=== PATIENT | male | born 1970 | race Caucasian/White ===

== ENCOUNTER 2023-04-02 20:01 | Outpatient (CLI) | payer BC ==
--- NOTE | 2023-04-10 20:56 | P.PCN ---
Date of Procedure: 04/02/23 Operative Findings: Screening polysomnography report Date of service is 04/02/2023 Pertinent history this is a 53-year-old male patient, a , presented to my office for evaluation of sleep apnea. The patient has excessive fatigue and sleepiness during the day with an [place] score of 16. He reported that his sleep was fragmented. He has history of chronic anxiety and PTSD and has been maintained on BuSpar. He also reported some difficulties with sleep initiation and maintenance. He has a body mass index of 34. He has a Mallampati class I. His comorbid conditions include arthritis and chronic body aches, hypertension, Cabrera's esophagus. No other cardiovascular complications. He does have a positive family history for obstructive sleep apnea. 2 of his brothers have GUMARO and they have been treated with CPAP therapy Pertinent physical findings the patient has a weight of 268 pounds, height is 6 feet and 2 inches and a body mass index is 34.4 Technical description The patient was studied using a standard complex polysomnography protocol that included recording of the 2 EKG, Central, occipital and frontal EEG, right and left outer canthus EOG, submental EMG, right and left anterior tibialis EMG, respiratory airflow by thermocouple and or pressure/flow transducer, respiratory efforts by abdominal and thoracic PVDF belts, oxygen saturation by cable oximetry. Position by observation synchronized the PSG. Equipment used: [employer]. Sleep architecture The total recording duration was 450 minutes. The total sleep time was 337.5 minutes. The wake after sleep onset time was 90 minutes. The overall sleep efficiency was 75%. Delayed sleep onset was 24.5 minutes. The latency to REM sleep was 136.5 minutes. The sleep architecture was characterized by 10.7% stage I, 77.3% stage II, 0% stage III and XII 0.6% REM sleep. The patient had a total arousal index of 8.5 Sleep continuity summary the patient had a total of 48 arousals with an index of 8.5. The respiratory arousal index was 1.1 Cardiac summary The average heart rate was 60 with a minimum heart rate of 56 and a maximum heart rate of 66 Periodic limb movement summary The patient had a total of 33. Rhythm with activity with an index of 5.9. The only 5. Rhythm with activity with arousals with an index of 0.9. Respiratory summary The sleep study showed a total of 79 obstructive events of which 0 obstructive apneas, 0 mixed apneas and 79 will obstructive hypopneas. Based on the AASM rule 1B criteria the patient has an AHI of 12.6 consistent with mild obstructive sleep apnea. Note that his AHI during REM was higher at 25.4. His AHI in the supine body position was also higher at 26. Oxygenation analysis The patient had a baseline pulse ox of 92% while awake. Lowest oxygen saturation was 80% and this occurred during REM sleep. The patient spent approximately 51 minutes of the sleep time at the pulse ox is below 89% Assessment Obstructive sleep apnea, mild at baseline with an AHI of 12.6. Nevertheless, the patient's disease is worse during REM sleep with an AHI of 25 and he was also worsening supine body position with an AHI of 26 Nocturnal oxygen desaturation secondary to obstructive sleep apnea with a minimum pulse ox of 80% Chronic hypersomnia and excessive fatigue with an [place] score of 16 Obesity BMI of 34 History of chronic anxiety and PTSD maintained on BuSpar Hypertension Plan We discussed the findings with the patient. Obviously, the patient is excessively symptomatic. He would benefit from CPAP therapy. Noted his disease is positional and he would benefit from sleeping on his side as the severity of his sleep apnea is significantly worse when sleeping supine. He needs to lose weight and he is encouraged to do so. He will be asked to come into the sleep center to undergo a CPAP titration and following that CPAP therapy is to follow.
== END 2023-04-03 05:15 | disposition home or self-care (01) ==
LOC: 3 N SLEEP 20:01
PROVIDERS: ATTEND Internal Medicine Critical Care Medicine
DX: G47.33 Obstructive sleep apnea (adult) (pediatric) (principal); G47.10 Hypersomnia, unspecified; G47.61 Periodic limb movement disorder; G47.36 Sleep related hypoventilation in conditions classified elsewhere; E66.9 Obesity, unspecified; I10 Essential (primary) hypertension; F41.9 Anxiety disorder, unspecified; F43.10 Post-traumatic stress disorder, unspecified; R53.83 Other fatigue; Z68.34 Body mass index [BMI] 34.0-34.9, adult
CPT/HCPCS: 95810

== ENCOUNTER 2023-05-14 19:29 | Outpatient (CLI) | payer BC ==
--- NOTE | 2023-05-23 22:51 | P.PCN ---
Date of Procedure: 05/14/23 Operative Findings: CPAP titration report Date of services 05/14/2023 Pertinent history 53-year-old female patient diagnosed having obstructive sleep apnea, mild severity with an AHI of 12.6. The patient has excessive fatigue and sleepiness and she carries an [place] score of 16. Her sleep is fragmented and she has chronic anxiety and PTSD maintained on BuSpar. Polysomnography was done on 04/10/2023 and the patient was found to have mild disease worse during REM sleep. Baseline AHI was 12.6 and 25 during REM sleep in 2016 in supine body position. The patient is morbidly obese and has hypertension is COVID conditions Pertinent physical findings The patient's weight is 268 pounds and the patient has a height of 6 feet and 2 inches with a body mass index of 34.4 Technical description The patient was studied using a standard complex polysomnography protocol that included recording of the 2 EKG, Central, occipital and frontal EEG, right and left outer canthus EOG, submental EMG, right and left anterior tibialis EMG, respiratory airflow by thermocouple and or pressure/flow transducer, respiratory efforts by abdominal and thoracic PVDF belts, oxygen saturation by cable oximetry. Position by observation synchronized the PSG. Stepwise CPAP titration was done to eliminate obstructive respiratory events. Equipment used: [employer]. Sleep architecture The total recording duration was 387 minutes. The total sleep time was 173.5 minutes. Overall sleep efficiency was 44.8%. Latency to sleep onset was 36 minutes. The latency to REM sleep was 99.5 minutes. The sleep architecture was characterized by 3.5% stage I, 95.1% stage II, 0% stage III, 5.2% REM sleep. The wake after sleep onset time was 17 8.5 minutes. Total arousal index was 10.4 Respiratory analysis The patient was started on CPAP therapy initially at a pressure of 6 cm of water and the titration was continued to reach a maximum CPAP pressure of 9 cm of water. Noted the pressure was regulated throughout the sleep study and it was noted that at the pressure of 9 cm, the patient had no significant obstructive respiratory events and arousal index was not elevated. Also, the oxygenation improved. Nevertheless, this is a somewhat suboptimal titration as the patient had a poor sleep efficiency and minimal REM sleep encountered during the sleep study. The patient is from various body positions Cardiac analysis Average heart rate was 57 with a minimum heart of 54 with a maximum heart of 64 Periodic limb movement activity The patient had a total of 80 P periodic limb movement activity with an index of 27.7. There were only 9 periodic limb movement activity with arousals with index of 3.9 Assessment Symptomatic obstructive sleep apnea, mild in severity with an AHI of 4.6, worse during REM sleep and worse in the supine body position. Patient underwent a CPAP titration Poor sleep efficiency as noted on the current CPAP titration Abnormal sleep architecture with quite diminished REM sleep and overexpression of stage II sleep Chronic hypersomnia, poor score of 16 Obesity with a BMI of 34 Chronic anxiety and depression on BuSpar Hypertension Plan Will give the patient a trial of CPAP therapy. Patient will be started on a APAP mode pressures of 5/9 cm of water and the patient is going to be offered an [employer] F20 fullface mask medium size and the patient will see him back in office in 30-90 days to assess clinical response and compliancy.
== END 2023-05-15 05:10 | disposition home or self-care (01) ==
LOC: 3 N SLEEP 19:29
PROVIDERS: ATTEND Internal Medicine Critical Care Medicine
DX: G47.33 Obstructive sleep apnea (adult) (pediatric) (principal); G47.10 Hypersomnia, unspecified; G47.61 Periodic limb movement disorder; G47.52 REM sleep behavior disorder; F41.9 Anxiety disorder, unspecified; F32.A Depression, unspecified; I10 Essential (primary) hypertension; F43.10 Post-traumatic stress disorder, unspecified; E66.01 Morbid (severe) obesity due to excess calories; Z68.34 Body mass index [BMI] 34.0-34.9, adult
CPT/HCPCS: 95811